=== PATIENT | male | born 1970 | race Caucasian/White ===

== ENCOUNTER → 2022-04-11 08:59 | Outpatient (CLI) | payer OTHER, SELFPAY ==
[2022-04-11 20:49] LABS: Erythrocyte Sedimentation Rate 5 MM/HR (0-15)
[2022-04-11 20:55] LABS: Alanine Aminotransferase 25 IU/L (<50); Albumin 4.1 g/dL (3.5-5.0); Albumin Globulin Ratio 1.3 (1.0-2.8); Alkaline Phosphatase 60 U/L (38-126); Aspartate Aminotransferase 30 IU/L (17-59); BUN Creatinine Ratio 22.5 (6-22); Bilirubin Total 0.6 mg/dL (0.2-1.3); Blood Urea Nitrogen 16 mg/dL (9-20); Calcium 8.9 mg/dL (8.4-10.2); Carbon Dioxide 29 mmol/L (22-32); Chloride 101 mmol/L (98-107); Cholesterol 177 mg/dL (140-199); Estimated Glomerular Filt Rate > 60 mL/min (>60); Globulin 3.1 g/dL (1.7-4.1); Glucose 89 mg/dL (70-100); HDL Cholesterol 50 mg/dL (40-60); HEMOLYSIS < 15 (0-50); LDL Cholesterol Calculated 94 mg/dL (<100); Potassium 4.6 mmol/L (3.4-5.1); Sodium 139 mmol/L (137-145); Total Protein 7.2 g/dL (6.3-8.2); Triglycerides 163 mg/dL (35-150)
== END ==
PROVIDERS: PCP Physician Assistant; Visit Provider Physician Assistant
DX: G89.29 Other chronic pain (principal); M25.512 Pain in left shoulder; M25.539 Pain in unspecified wrist; M25.569 Pain in unspecified knee; Z13.220 Encounter for screening for lipoid disorders
CPT/HCPCS: 80053; 80061; 85651

== ENCOUNTER → 2023-08-19 09:31 | Outpatient (CLI) | payer OTHER, SELFPAY ==
[2023-08-19 19:28] LABS: Cholesterol 193 mg/dL (140-199); HDL Cholesterol 50 mg/dL (40-60); LDL Cholesterol Calculated 106 mg/dL (<100); Triglycerides 185 mg/dL (35-150)
[2023-08-19 19:58] LABS: Prostate Specific Antigen Scrn 0.485 ng/mL (0.1-4.0)
[2023-08-19 20:09] LABS: HIV 1 & 2 Ab/Ag 4th Gen Combo NEGATIVE (NEGATIVE)
[2023-08-19 20:33] LABS: Folate 11.9 ng/mL (2.76-20.0); Vitamin B12 Reflex MMA if <400 300 pg/mL (239-931)
[2023-08-19 20:46] LABS: Urine N gonorrhoeae NOT DETECTED
[2023-08-19 21:22] LABS: Urine Chlamydia NOT DETECTED
[2023-08-21 07:23] LABS: HBsAg Screen Negative (Negative); Hepatitis A Antibody IgM Negative (Negative); Hepatitis B Core Antibody IgM Negative (Negative); Hepatitis C Antibody Non Reactive (Non Reactive)
[2023-08-22 05:07] LABS: Hepatitis B Surf Ab Qualitativ Non Reactive (.)
[2023-08-23 05:36] LABS: Methylmalonic Acid,Serum 398 nmol/L (0-378)
[2023-09-09 10:17] LABS: Treponema pallidum Antibodies Non Reactive
== END ==
PROVIDERS: PCP Family Medicine; Visit Provider Family Medicine
DX: Z12.5 Encounter for screening for malignant neoplasm of prostate (principal); Z71.3 Dietary counseling and surveillance; Z00.00 Encounter for general adult medical examination without abnormal findings; Z12.9 Encounter for screening for malignant neoplasm, site unspecified; Z13.6 Encounter for screening for cardiovascular disorders; Z13.1 Encounter for screening for diabetes mellitus
CPT/HCPCS: 80061; 80074; 82607; 82746; 83921; 86706; 86780; 87389; 87491; 87591; G0103

== ENCOUNTER → 2024-08-28 07:30 | Outpatient (CLI) | payer OTHER, SELFPAY ==
[2024-08-31 19:40] LABS: Fecal Immunochemical Test Negative (Negative)
== END ==
PROVIDERS: PCP Family Medicine; Visit Provider Physician Assistant Medical
DX: Z13.6 Encounter for screening for cardiovascular disorders (principal); Z13.1 Encounter for screening for diabetes mellitus; Z12.9 Encounter for screening for malignant neoplasm, site unspecified; Z12.11 Encounter for screening for malignant neoplasm of colon
CPT/HCPCS: 82274

== ENCOUNTER → 2024-09-10 10:25 | Outpatient (CLI) | payer OTHER, SELFPAY ==
[2024-09-10 20:04] LABS: Hematocrit 48.5 % (41-53); Hemoglobin 16.3 g/dL (13.5-17.5); Mean Corpuscular HGB Conc 33.6 % (30-36); Mean Corpuscular Hemoglobin 29.7 PG (26-34); Mean Corpuscular Volume 88.5 fL (80-100); Platelet Count 238 X10^3/uL (150-400); Red Blood Cell Count 5.48 X10^6/uL (4.5-5.9); White Blood Cell Count 5.8 X10^3/uL (4.5-11.0)
[2024-09-10 20:13] LABS: Alanine Aminotransferase 21 IU/L (<50); Albumin 4.5 g/dL (3.5-5.0); Albumin Globulin Ratio 1.4 (1.0-2.8); Alkaline Phosphatase 68 U/L (38-126); Aspartate Aminotransferase 76 IU/L (17-59); Bilirubin Total 0.7 mg/dL (0.2-1.3); Blood Urea Nitrogen 12 mg/dL (9-20); Calcium 9.3 mg/dL (8.4-10.2); Carbon Dioxide 33 mmol/L (22-32); Chloride 101 mmol/L (98-107); Cholesterol 170 mg/dL (140-199); Estimated Glomerular Filt Rate > 60 mL/min (>60); Globulin 3.3 g/dL (1.7-4.1); Glucose 91 mg/dL (70-100); HDL Cholesterol 46 mg/dL (40-60); HEMOLYSIS 20 (0-50); LDL Cholesterol Calculated 97 mg/dL (<100); Potassium 4.7 mmol/L (3.4-5.1); Sodium 138 mmol/L (137-145); Total Protein 7.8 g/dL (6.3-8.2); Triglycerides 137 mg/dL (35-150)
[2024-09-10 20:42] LABS: Prostate Specific Antigen Scrn 0.469 ng/mL (0.1-4.0)
[2024-09-10 20:44] LABS: TSH w/ Reflex to FT4 0.59 uIU/mL (0.47-4.68)
[2024-09-10 20:49] LABS: Hepatitis B Surface Antigen NEGATIVE s/c (NEGATIVE)
[2024-09-10 21:19] LABS: HIV 1 & 2 Ab/Ag 4th Gen Combo NEGATIVE (NEGATIVE); Hep C Virus Ab w/Reflex Quant NEGATIVE s/c (NEGATIVE)
[2024-09-10 21:52] LABS: Urine N gonorrhoeae NOT DETECTED
[2024-09-10 22:24] LABS: Urine Chlamydia NOT DETECTED
[2024-09-12 03:11] LABS: RPR Screen Non Reactive (Non Reactive)
== END ==
PROVIDERS: PCP Family Medicine; Visit Provider Physician Assistant Medical
DX: Z13.6 Encounter for screening for cardiovascular disorders (principal); Z13.1 Encounter for screening for diabetes mellitus; Z12.9 Encounter for screening for malignant neoplasm, site unspecified; Z12.11 Encounter for screening for malignant neoplasm of colon; Z11.3 Encounter for screening for infections with a predominantly sexual mode of transmission; Z12.5 Encounter for screening for malignant neoplasm of prostate; Z13.0 Encounter for screening for diseases of the blood and blood-forming organs and certain disorders involving the immune mechanism
CPT/HCPCS: 80053; 80061; 84443; 85027; 86592; 86803; 87340; 87389; 87491; 87591; G0103

== ENCOUNTER 2024-10-23 08:08 | Day surgery (SDC) | payer BC, SELFPAY ==
--- NOTE | 2024-10-23 | PATH_ITS ---
[facility] Accession Number: [id number] No. of containers..02 Tissue . 01 Material submitted: . PART A: colon - CECAL POLYP PART B: colon - SIGMOID COLON POLYP . 01 Diagnosis: A. CECAL POLYP: Sessile serrated adenoma. . B. SIGMOID COLON POLYP: Colonic mucosa with no evidence of neoplasm, consistent with polypoid redundancy. Negative for serrated lesion, dysplasia or malignancy. MRV 10/26/2024 1501 Local . 01 Electronically signed: . David Trejo MD, PhD, Pathologist NPI- [id number] . 01 Gross description: . A. Received in formalin, labeled with two patient identifiers and 1. Cecal polyp, and consists of two regan irregular soft tissue fragments measuring 0.7 cm and 1.2 cm in greatest dimension. The specimens are entirely submitted in cassette A1. B. Received in formalin, labeled with two patient identifiers and 2. Sigmoid colon polyp, and consists of a 1.2 x 0.7 x 0.1 cm, regan-brown, flattened, elongated tissue which is inked, bisected, and entirely submitted in cassette B1. ([id number]) /[facility] 10/24/2024 1812 Local . 01 Pathologist provided ICD-10: D12.0 . 01 CPT . 441709, 592060 Specimen Comment: A courtesy copy of this report has been sent to [facility] Performed at: [address] [id number] MD Isaías Pantoja MD Phone: [phone]
[2024-10-23 08:31] VITALS: BP 133/80; PULSE 78; RESP 12; TEMP 36.4; O2SAT 98
[2024-10-23] MEDS: SODIUM CHLORIDE 0.9% 1,000 ML 250 ML IV (08:42)
[2024-10-23 09:17] LABS: COVID-19 CEPHEID 4-PLEX PCR Negative (Negative); Influenza A - CEPHEID Flu A NEGATIVE (NEGATIVE); Influenza B - CEPHEID Flu B NEGATIVE (NEGATIVE); Respiratory Syncytial Virus Negative (Negative)
--- NOTE | 2024-10-23 09:21 | PM.HP.IH.1 ---
History of Present Illness History of Present Illness Date Patient Seen: 10/23/24 Time Patient Seen: 09:21 Chief complaint: Colonoscopy Narrative: 54-year-old white male presents for initial screening colonoscopy. He has had a previous fistula repair and has resultant sentinel pile. [facility] Medical History (Updated 10/23/24 @ 09:22 by Bj Sims MD) Screen for colon cancer (~10/23/24) Wears glasses Mumps Chicken pox Surgical History Anesthesia Fistula (~1999) Family History Father Bladder cancer History of heart disease Mother Cancer Social History Smoking Status: Former smoker alcohol intake: never additional social history: dad of bladder cancer at 91 yo mom 74 of ovarian cancer tobacco: No etoh: no lives with partner works: [employer], contractor exercise:no cardio, but does pilates, hikes vegetarian 07/2023 Meds Home Medications and Allergies Home Medications Medication Instructions Recorded Confirmed Type mupirocin 2 % topical ointment 1 applic topical TID #22 grams 08/06/24 08/06/24 Rx tadalafil 20 mg tablet (Cialis) 20 mg PO 08/06/24 08/06/24 History sodium,potassium,mag sulfates 17.5 See Rx Instructions PO .COMPLEX 09/17/24 Rx gram-3.13 gram-1.6 gram oral soln #354 mL (Suprep Bowel Prep Kit) omeprazole 20 mg capsule,delayed 20 mg PO DAILY #90 caps 10/22/24 10/23/24 Rx release Allergies Allergy/AdvReac Type Severity Reaction Status Date / Time meloxicam AdvReac Verified 10/23/24 08:23 Review of Systems Review of Systems ROS: Yes All systems reviewed with the patient and are negative except as otherwise documented Exam Vital Signs (past 8 hours): - 10/23/24 08:31 Temperature 97.5 F L Pulse Rate 78 Respiratory Rate 12 Blood Pressure 133/80 Pulse Oximetry 98 Oxygen Delivery Method Room Air Oxygen Delivery Method Room Air Narrative Exam Narrative: Gen: NAD, sitting comfortably in bed, appears well HEENT: Sclera are anicteric, head is normocephalic and atraumatic, trachea is midline. CV: RRR, no JVD Resp: clear to auscultation bilaterally, equal chest wall movement bilaterally Abd: soft, nontender, normoactive bowel sounds Ext: no edema, full range of motion Neuro: Cranial nerves II-XII grossly intact, no focal deficits Skin: No erythema or ecchymosis Objective Labs Labs: Laboratory Results - last 24 hr 10/23/24 07:00 SARS-CoV-2 (PCR) Negative Influenza A (RT-PCR) Flu a negative Influenza B (RT-PCR) Flu b negative RSV (PCR) Negative Assessment & Plan Assessment & Plan narrative: Patient presents for colonoscopy Risks, benefits, alternatives to colonoscopy explained, including but not limited to bowel perforation or other serious complication requiring surgery at less than 1 in 5000 colonoscopies, abdominal pain, cramping or bleeding and less than 1% of colonoscopies, and the chances that we find a diagnosis that would require further intervention of about 2%. Patient agrees to proceed. Time-Based Coding :: [TOTAL MINUTES] spent with patient and on the chart (including review of chart, obtaining history, exam, reviewing outside data, placing orders, documenting exam and treatment plan, and counseling patient) on [DATE]. [employer] Document charge(s): No
--- NOTE | 2024-10-23 09:47 | PM.OP.COLON ---
Operative Date/Time/Diagnoses Date of procedure: 10/23/24 Time of procedure: 09:47 Pre-op diagnosis: Screening colonoscopy Post-op diagnosis: same (Polyps x2) Procedure & Clinicians Study performed: Colonoscopy with cold snare polypectomy of cecal polyp and sigmoid polyp Same procedure as scheduled: Yes Indications: Colon screening Surgeon: Bj Sims Procedure Notes SCOAP/Timeout: Performed Procedure in detail: Time-out was performed. Mac was induced. Patient was placed in left lateral decubitus position. The perineum was inspected without any gross abnormality. Lubricated pediatric colonoscope was inserted and advanced to the cecum. The terminal ileum was intubated. The colonoscope was withdrawn slowly inspecting the circumference of the colon. Cecal polyp was noted, removed completely with cold snare polypectomy and retrieved. Sigmoid colon polyp was noted, removed with cold snare polypectomy completely, and retrieved. Very small polyps may have been missed, prep quality was adequate. Retroflexed view of the rectum showed small, non prolapsed nonbleeding internal hemorrhoids. The scope was withdrawn the patient was taken to PACU in good condition. Scope withdrawal time: 10 Sedation minutes: 13 Findings: polyp(s) Specimen(s): other (1. Cecal polyp 2. Sigmoid polyp) Complications: none Impression: Polyps x2 Post-procedure Recommendations: Colonoscopy in 5 years (Next colonoscopy in 5-7 years) Follow up: as needed Disposition: PACU
[2024-10-23 09:49] VITALS: BP 116/70; PULSE 74; RESP 12; TEMP 36.7; O2SAT 95
[2024-10-23 09:54] VITALS: BP 124/70; PULSE 74; RESP 14; O2SAT 95
[2024-10-23 09:59] VITALS: BP 110/72; PULSE 76; RESP 14; O2SAT 95
[2024-10-23 10:04] VITALS: BP 113/71; PULSE 72; RESP 12; TEMP 36.6; O2SAT 96
== END 2024-10-23 10:20 | disposition home or self-care (01) ==
PROVIDERS: Nurse Anesthetist, Certified Registered; PCP Family Medicine; Referring Provider Surgery; Visit Provider Surgery
PROC: 0DJD8ZZ Inspection of Lower Intestinal Tract, Via Natural or Artificial Opening Endoscopic (ICD-10-PCS; CPT 45378; principal; 2024-10-23 09:15)
DX: Z12.11 Encounter for screening for malignant neoplasm of colon (principal); D12.0 Benign neoplasm of cecum; K63.5 Polyp of colon; K64.8 Other hemorrhoids; Z87.891 Personal history of nicotine dependence
CPT/HCPCS: 45385; 0241U; J2704